=== PATIENT | male | born 1980 | race Caucasian/White ===

== ENCOUNTER 2018-07-10 05:03 | Emergency (ER) | payer OTHER, SELFPAY ==
[~2018-07-10] VITALS: Ht 182.9 cm; Wt 86.5 kg
[2018-07-10 05:07] VITALS: BP 121/77
[2018-07-10] MEDS ORDERED: MAALOX/HYOSCYAMINE/LIDOCAINE 45 ML BTL ONE (05:42)
[2018-07-10] MEDS ORDERED: MAALOX/HYOSCYAMINE/LIDOCAINE 45 ML BTL PO ONE (06:00)
== END 2018-07-10 06:14 | disposition home or self-care (01) ==
LOC: ED 06:00
DX: S27.818A Other injury of esophagus (thoracic part), initial encounter (principal); X58.XXXA Exposure to other specified factors, initial encounter; Y93.89 Activity, other specified; Y99.8 Other external cause status; Y92.89 Other specified places as the place of occurrence of the external cause
CPT/HCPCS: 99284